=== PATIENT | male | born 1950 | race Caucasian/White ===

== ENCOUNTER 2021-11-09 09:43 | Outpatient (CLI) | payer MEDICARE, BC, SELFPAY ==
[2021-11-09 14:25] LABS: Chloride* 106 mmol/L (96-114); Potassium* 4.6 mmol/L (3.6-5.1); Sodium* 140 mmol/L (135-149)
[2021-11-09 14:27] LABS: Alanine Aminotransferase* 22 U/L (4-50); Carbon Dioxide* 21 mmol/L (20-32); Cholesterol* 158 mg/dL (90-199); Creatinine* 1.2 mg/dL (0.5-1.5); Estimated Glomerular Filt Rate 65 ml/min
[2021-11-09 14:28] LABS: Blood Urea Nitrogen* 22 mg/dL (7-30); Calcium* 9.5 mg/dL (8.4-10.6); Glucose* 177 mg/dL (60-115); HDL Cholesterol* 42 mg/dL (>=40); Triglycerides* 237 mg/dL (40-149)
[2021-11-09 14:30] LABS: LDL Cholesterol Calculated 69 mg/dL (<100)
[2021-11-09 14:59] LABS: PSA Screen* 0.67 ng/mL (0.10-4.00)
== END 2021-11-09 09:44 | disposition home or self-care (01) ==
PROVIDERS: PCP Family Medicine; Visit Provider Family Medicine
DX: I10 Essential (primary) hypertension (principal); E78.5 Hyperlipidemia, unspecified; Z12.5 Encounter for screening for malignant neoplasm of prostate; E11.9 Type 2 diabetes mellitus without complications
CPT/HCPCS: 80048; 80061; 84153; 84460

== ENCOUNTER 2022-02-24 13:35 | Outpatient (CLI) | payer MEDICARE, BC, SELFPAY | END 2022-02-24 13:36 | disposition home or self-care (01) | LOC: RAD 13:36 | PROVIDERS: PCP Family Medicine; Visit Provider Internal Medicine Cardiovascular Disease | DX: I25.10 Atherosclerotic heart disease of native coronary artery without angina pectoris (principal) | CPT/HCPCS: 93306 ==

== ENCOUNTER 2022-04-26 10:18 | Outpatient (CLI) | payer MEDICARE, BC, SELFPAY ==
[2022-04-26 13:53] LABS: Hemoglobin* 11.9 gm/dL (13.5-17.5)
== END 2022-04-26 10:19 | disposition home or self-care (01) ==
PROVIDERS: PCP Family Medicine; Visit Provider Family Medicine
DX: M97.8XXA Periprosthetic fracture around other internal prosthetic joint, initial encounter (principal); Z96.649 Presence of unspecified artificial hip joint
CPT/HCPCS: 85018

== ENCOUNTER 2022-09-20 14:56 | Outpatient (CLI) | payer MEDICARE, BC, SELFPAY | END 2022-09-20 14:57 | disposition home or self-care (01) | PROVIDERS: PCP Family Medicine; Visit Provider Family Medicine | DX: E78.5 Hyperlipidemia, unspecified (principal); I10 Essential (primary) hypertension; E11.9 Type 2 diabetes mellitus without complications; E55.9 Vitamin D deficiency, unspecified | CPT/HCPCS: 80048; 80061; 84460 ==

== ENCOUNTER 2023-02-16 10:05 | Outpatient (CLI) | payer MEDICARE, BC, SELFPAY | END 2023-02-16 10:06 | disposition home or self-care (01) | PROVIDERS: PCP Family Medicine; Visit Provider Family Medicine | DX: E11.9 Type 2 diabetes mellitus without complications (principal); E78.2 Mixed hyperlipidemia; I10 Essential (primary) hypertension; R53.83 Other fatigue; Z12.5 Encounter for screening for malignant neoplasm of prostate; Z13.21 Encounter for screening for nutritional disorder; G47.33 Obstructive sleep apnea (adult) (pediatric); G25.0 Essential tremor; F33.1 Major depressive disorder, recurrent, moderate | CPT/HCPCS: 82306; 84153; 84403 ==

== ENCOUNTER 2023-06-13 10:36 | Outpatient (CLI) | payer MEDICARE, BC, SELFPAY | END 2023-06-13 10:37 | disposition home or self-care (01) | PROVIDERS: PCP Family Medicine; Visit Provider Family Medicine | DX: I25.10 Atherosclerotic heart disease of native coronary artery without angina pectoris (principal); E78.2 Mixed hyperlipidemia; Z79.899 Other long term (current) drug therapy | CPT/HCPCS: 80048; 80061; 84460; 85025 ==

== ENCOUNTER 2023-11-16 11:24 | Outpatient (CLI) | payer MEDICARE, BC, SELFPAY ==
[2023-11-16 14:15] LABS: Creatinine Urine 110.3 mg/dL
[2023-11-16 14:20] LABS: Microalbumin Creatinine Ratio 10 mg/g (0-30); Microalbumin Urine 2 mg/dL
== END 2023-11-16 11:25 | disposition home or self-care (01) ==
PROVIDERS: PCP Family Medicine; Visit Provider Family Medicine
DX: E11.9 Type 2 diabetes mellitus without complications (principal); E78.2 Mixed hyperlipidemia; I10 Essential (primary) hypertension; R53.83 Other fatigue; R35.0 Frequency of micturition; Z12.5 Encounter for screening for malignant neoplasm of prostate
CPT/HCPCS: 80048; 82043; 82570; 84439; 84443; 87086; 87186; G0103